=== PATIENT | male | born 1980 | race Caucasian/White ===

== ENCOUNTER → 2017-07-18 08:32 | Outpatient (POV) | payer MEDICAID, OTHER, SELFPAY | PROVIDERS: Family Provider Internal Medicine Adolescent Medicine; Visit Provider Thoracic Surgery (Cardiothoracic Vascular Surgery) | DX: Z00.00 Encounter for general adult medical examination without abnormal findings (principal) ==

== ENCOUNTER 2018-09-04 11:36 | Emergency (ER) | payer MEDICAID, SELFPAY ==
[2018-09-04 11:36] VITALS: BP 155/98; PULSE 83; RESP 20; TEMP 36.4; O2SAT 100; BMI 19.2
--- NOTE | 2018-09-04 11:38 | PC.NURSE ---
called for radiology to come to ed for 2v xray
--- NOTE | 2018-09-04 11:45 | XR_ITS ---
XR chest 2V HISTORY: ITS.REASON: epigastric and silver rib pain ORDERING PHYSICIAN: Edwardo Yanes MD PATIENT AGE: 38 years COMPARISON: 06/22/2010 FINDINGS: The cardiomediastinal silhouette and pulmonary vascularity are within normal limits. There is a prominent pectus excavatum deformity. There is blunting of the right CP angle. There is some increased density in the left CP angle with some pleural thickening. Upper lobes are clear. No acute bony findings. IMPRESSION: Prominent pectus excavatum with pleural thickening or small effusion along the right CP angle and mild pleural thickening in the lower chest laterally on the left
--- NOTE | 2018-09-04 11:54 | PC.NURSE ---
pt gone to xray
--- NOTE | 2018-09-04 11:55 | PC.NURSE ---
pt to Xray
--- NOTE | 2018-09-04 12:05 | [facility].EDGENADL ---
ED Disposition Clinical Impression: Cholelithiasis Qualifiers: Cholelithiasis location: gallbladder Cholecystitis presence: without cholecystitis Biliary obstruction: without biliary obstruction Qualified Code(s): K80.20 - Calculus of gallbladder without cholecystitis without obstruction Disposition: Home, Self-Care Condition on Discharge: Good Additional Instructions: Additional instructions for ABDOMINAL PAIN: Follow-up with general surgeon. Call for appointment. Return immediately if worsening abdominal pain, vomiting, shortness of breath, fever, vomiting of blood, yellowing of eyes or skin, or abdominal distention. Low-fat diet. Referrals: Provider,MD Yanelis [Referring] - Dane Matthews MD [Staff Physician] - - Critical Care Critical Care Time: No Attestation: On 09/04/18, the high probability of a clinically significant, sudden or life threatening deterioration of the following system(s) required my full and direct attention, intervention and personal management. The time I documented below is in addition to time spent performing reported procedures but includes the following listed in this critical care notation. Medical Decision Making - Oswaldo Inquiry Pt receiving controlled substance: No Vital Signs: 09/04/18 11:36 09/04/18 12:06 09/04/18 13:00 Temperature 97.6 F Temperature Source Oral Pulse Rate [Apical] 83 80 92 H Respiratory Rate 20 Blood Pressure [Right Arm] 155/98 H 148/94 H 140/80 Blood Pressure Mean [Right Arm] 117 112 100 Blood Pressure Source [Right Arm] Automatic Cuff Blood Pressure Position [Right Arm] Sitting 02 Sat by Pulse Oximetry 100 100 100 Oxygen Delivery Method Room Air - Lab Data Lab Results 09/04/18 11:38: WBC 7.3, RBC 5.69, Hgb 15.4, Hct 47.5, MCV 83.5, MCH 27.0, MCHC 32.3, RDW 13.4, Plt Count 278, MPV 7.2 L, Neut % (Auto) 81.7 H, Lymph % (Auto) 13.1, [place] % (Auto) 3.7, Eos % (Auto) 1.0, Baso % (Auto) 0.4, Neut # (Auto) 5.9, Lymph # (Auto) 1.0, [place] # (Auto) 0.3, Eos # (Auto) 0.1, Baso # (Auto) 0.0 09/04/18 11:38: Sodium 140, Potassium 5.0, Chloride 105, Carbon Dioxide 31, Anion Gap 9.0, BUN 16, Creatinine 0.95, Estimated Creat Clear 102, Estimated GFR 89, Est GFR ( Amer) 108, Glucose 127 H, Calcium 9.1, Troponin I < 0.02, Lipase 311 Result diagrams: 09/04/18 11:38 09/04/18 11:38 Orders (Tests/Meds): ED MEDICATIONS Generic Name Dose Route Start Last Admin Trade Name Freq PRN Reason Stop Dose Admin Ondansetron HCl 4 mg 09/04/18 14:07 Zofran 4mg/2ml Vial IV 09/04/18 14:08 ONCE ONE Discontinued Medications Generic Name Dose Route Start Last Admin Trade Name Freq PRN Reason Stop Dose Admin Ioversol 75 ml 09/04/18 12:49 09/04/18 12:50 Rad-Optiray 350 100ml Vial IV 09/04/18 12:50 75 ml ONCE ONE Administration Protocol Ketorolac Tromethamine 30 mg 09/04/18 14:03 Toradol 30mg/Ml Vial IV 09/04/18 14:04 ONCE ONE Sodium Chloride 10 ml 09/04/18 12:49 09/04/18 12:50 Rad-Saline Flush 10ml Syringe IV 09/04/18 12:50 10 ml ONCE ONE Administration ORDERS Category Date Time Status Drug Screen,Urine Stat Lab 09/04/18 13:36 Received Urinalysis and Microscopic Stat Lab 09/04/18 13:34 Received - Radiology Data #1 Image(s): Chest Image Reviewed: Yes I reviewed the patient's radiology image, Yes I have reviewed radiologist's interpretation IMPRESSION: Prominent pectus excavatum with pleural thickening or small effusion along the right CP angle and mild pleural thickening in the lower chest laterally on the left Dictated By: Jesus Aranda MD Signed By: <Electronically signed by Jesus Aranda MD in [place]> 09/04/18 1339 - CT Data CT Scan: Abdomen, Pelvis Time Received: 14:01 Findings Narrative: Head: IMPRESSION: No change with no acute intracranial findings Dictated By: Jesus Aranda MD Signed By: <Electronically signed by Jesus Aranda MD in [place]> 09/04/18
[2018-09-04 12:06] VITALS: BP 148/94; PULSE 80; O2SAT 100
[2018-09-04 12:06] LABS: Basophils % 0.4 % (0.1-2.0); Eosinophils # 0.1 K/mm3 (0.0-0.4); Hematocrit 47.5 % (42.0-52.0); Hemoglobin 15.4 g/dL (14.1-18.0); Lymphocytes % 13.1 % (10-50); Mean Corpuscular HGB Conc 32.3 g/dL (31.8-35.4); Mean Corpuscular Volume 83.5 fl (80-94); Mean Platelet Volume 7.2 fl (7.4-10.4); Monocytes # 0.3 K/mm3 (0.1-1.0); Monocytes % 3.7 % (1.7-9.3); Neutrophils # 5.9 K/mm3 (1.8-7.8); Neutrophils % 81.7 % (37.0-80.0); Platelet Count 278 K/mm3 (142-424); Red Blood Count 5.69 M/mm3 (4.60-6.20); Red Cell Distribution Width 13.4 % (11.5-17.5); White Blood Count 7.3 K/mm3 (4.8-10.8)
[2018-09-04 12:15] LABS: Blood Urea Nitrogen 16 mg/dL (7-18); Calcium 9.1 mg/dL (8.5-10.1); Carbon Dioxide 31 mmol/L (21.0-32.0); Chloride 105 mmol/L (98-107); Creatinine Clearance Estimated 102 mL/min (50-200); Creatinine,Serum 0.95 mg/dL (0.70-1.30); Estimated Glomerular Filt Rate 89 ml/min (>60); GFR (African American) 108 ML/MIN (>60); Glucose 127 mg/dL (74-106); Lipase 311 u/L (73-393); Sodium 140 mmol/L (136-145); Troponin I < 0.02 ng/ml (0.00-0.06)
--- NOTE | 2018-09-04 12:25 | CT_ITS ---
CT head/brain wo con HISTORY: Blurred vision, left-sided numbness ITS.REASON: thinks he had a stroke, L eye, L hand problems ORDERING PHYSICIAN: Edwardo Yanes MD PATIENT AGE: 38 years COMPARISON: 07/17/2008 TECHNIQUE: Axial images obtained without contrast. Brain and bone windows reviewed. All CT scans at the facility use one or more dose reduction, viz: automated exposure control, ma/kV adjustment per patient size (including targeted exams where dose is matched to indication, i.e. head), or iterative reconstruction technique. FINDINGS: No midline shift, mass effect, intracranial hemorrhage, hydrocephalus, or extra-axial fluid collection is evident. There is asymmetry in the lateral ventricles the right being larger than the left. This can be a normal variant and is not significantly changed. There is mild mucosal thickening of the maxillary sinus on the left. The calvarium has an unremarkable appearance. No mastoid effusion. No sinus air-fluid levels.. IMPRESSION: No change with no acute intracranial findings
--- NOTE | 2018-09-04 12:25 | CT_ITS ---
CT abdomen pelvis w con CLINICAL INDICATION: Abdominal pain, right upper quadrant pain ITS.REASON: abdo pain ORDERING PHYSICIAN: Edwardo Yanes MD PATIENT AGE: 38 years COMPARISON: None TECHNIQUE: Axial images obtained with sagittal and coronal reformats. All CT scans at the facility use one or more dose reduction, viz: automated exposure control, ma/kV adjustment per patient size (including targeted exams where dose is matched to indication, i.e. head), or iterative reconstruction technique. PROCEDURE: Oral Contrast: None IV Contrast: 75 mL Optiray 350. FINDINGS: There is a prominent pectus deformity. A noncalcified nodule present in the right lung base posteriorly measuring 9 mm. There are mild atelectatic or fibrotic changes in the left lung base anteriorly with mild pleural thickening laterally. Is an isodense 10 mm nodule in the right hepatic lobe laterally. The gallbladder is distended with stone or stones in the fundus of the gallbladder. There is splenomegaly at 15 cm. The adrenal glands, pancreas, and kidneys have an unremarkable appearance. No renal or ureteral calculi or hydronephrosis. The bowel gas pattern is nonspecific/nonobstructive. The appendix is not well delineated. No secondary signs of appendicitis. There is questionable thickening of the wall the rectum versus adherent feces. No intestinal obstruction or free air. No pelvic fluid collections. No acute bony findings. IMPRESSION: 1. Severe pectus deformity with nodularity in the right lung base posteriorly. Consider dedicated outpatient chest CT in 3 months. Mild pleural thickening is present in the left lung base. 2. Cholelithiasis 3. Nonspecific 10 mm isodense lesion of the right lobe of the liver. 4. Questionable thickening of the wall the rectum versus adherent feces
[2018-09-04 13:00] VITALS: BP 140/80; PULSE 92; O2SAT 100
--- NOTE | 2018-09-04 13:32 | PC.NURSE ---
pt was unable to see anything on the eye chart
[2018-09-04 13:46] LABS: Microscopic, Urine URINE MICROSCOPIC (MICROSCOPIC)
[2018-09-04 14:12] VITALS: BP 142/87; PULSE 86; O2SAT 98
[2018-09-04 14:13] LABS: Appearance,Urine CLEAR (Clear); Bilirubin,Urine Negative (Negative); Blood, Urine Negative (Negative); Color,Urine YELLOW (Yellow); Glucose,Urine (UA) Negative (Negative); Ketones,Urine Negative (Negative); Leukocyte Esterase,Urine Negative (Negative); Nitrate,Urine Negative (Negative); PH,Urine 6.5 (5.0-8.5); Protein,Urine Negative (Negative); Specific Gravity, Urine 1.015 (1.005-1.030); Urobilinogen,Urine 0.2 EU/dl (0.2)
[2018-09-04 14:15] VITALS: BP 142/87; PULSE 101; RESP 18; TEMP 36.7; O2SAT 98
[2018-09-04 14:37] LABS: Amphetamine/Metha Screen,Urine Positive ng/mL (<1000); Barbiturates Screen,Urine Negative ng/mL (<200); Benzodiazepines Screen,Urine Positive ng/mL (<200); Cannabinoid Screen,Urine Negative ng/mL (<50); Cocaine Screen,Urine Negative ng/mL (<300); Methadone Screen,Urine Negative ng/mL (<300); Opiate Screen,Urine Negative ng/mL (<300); Phencyclidine Screen,Urine Negative ng/mL (<25)
[2018-09-04 14:43] LABS: Bacteria,Urine 1+ /lpf; Mucus,Urine 2+ /lpf
== END 2018-09-04 14:22 | disposition home or self-care (01) ==
PROVIDERS: Emergency Provider Emergency Medicine; PCP Internal Medicine Adolescent Medicine
DX: K80.20 Calculus of gallbladder without cholecystitis without obstruction (principal); F17.210 Nicotine dependence, cigarettes, uncomplicated
CPT/HCPCS: 70450; 71046; 74177; 80048; 80305; 81001; 83690; 84484; 85025; 93005; 96374; 96375; 99284; J2405; Q9967

== ENCOUNTER 2018-10-12 19:01 | Observation (INO) ==
[2018-10-12 19:40] LABS: Basophils % 0.2 % (0.1-2.0); Eosinophils # 0.1 K/mm3 (0.0-0.4); Eosinophils % 0.9 % (0.1-12.0); Hematocrit 45.2 % (42.0-52.0); Hemoglobin 14.7 g/dL (14.1-18.0); Lymphocytes # 1.1 K/mm3 (0.7-4.5); Lymphocytes % 8.6 % (10-50); Mean Corpuscular HGB Conc 32.5 g/dL (31.8-35.4); Mean Corpuscular Volume 82.2 fl (80-94); Mean Platelet Volume 7.8 fl (7.4-10.4); Monocytes # 0.4 K/mm3 (0.1-1.0); Monocytes % 2.9 % (1.7-9.3); Neutrophils # 11.2 K/mm3 (1.8-7.8); Neutrophils % 87.3 % (37.0-80.0); Platelet Count 250 K/mm3 (142-424); White Blood Count 12.8 K/mm3 (4.8-10.8)
[2018-10-12 19:50] LABS: Alanine Aminotransferase 22 U/L (12-78); Albumin Level 3.4 gm/dL (3.4-5.0); Albumin/Globulin Ratio 0.9 (1.1-1.8); Alkaline Phosphatase 86 U/L (46-116); Amylase 52 U/L (25-115); Anion Gap 8.6 mEq/L (5-15); Aspartate Amino Transferase 10 U/L (15-37); Bilirubin,Total 0.4 mg/dL (0.2-1.0); Blood Urea Nitrogen 17 mg/dL (7-18); Calcium 8.8 mg/dL (8.5-10.1); Carbon Dioxide 32 mmol/L (21.0-32.0); Chloride 103 mmol/L (98-107); Globulin 3.7 gm/dl (1.3-3.2); Glucose 100 mg/dL (74-106); Sodium 139 mmol/L (136-145); Total Protein,Serum 7.1 gm/dL (6.4-8.2)
[2018-10-12 19:54] LABS: C-Reactive Protein < 0.2 mg/L (0.0-0.9)
[2018-10-12 19:58] LABS: Eosinophils % 2 % (0-3); Lymphocytes % 6 % (10-50); Monocytes % 2 % (2-9); Neutrophils % 87 % (42-76); RBC Morphology Normal; Total Cells Counted 100
[2018-10-12 20:10] LABS: Erythrocyte Sedimentation Rate 8 mm/hr (0-15)
--- NOTE | 2018-10-12 20:49 | Emergency Department Note ---
ED Disposition Clinical Impression: Pectus excavatum, Tobacco use Cholelithiasis Qualifiers: Cholelithiasis location: gallbladder Cholecystitis presence: with cholecystitis Cholecystitis acuity: acute and chronic Biliary obstruction: without biliary obstruction Qualified Code(s): K80.12 - Calculus of gallbladder with acute and chronic cholecystitis without obstruction Disposition: Admitted as Observation Condition on Discharge: Good Instructions: DI for Acute Abdomen Referrals: Pancho Hayden MD [Primary Care Provider] - - Critical Care Critical Care Time: No Attestation: On 10/12/18, the high probability of a clinically significant, sudden or life threatening deterioration of the following system(s) required my full and direct attention, intervention and personal management. The time I documented below is in addition to time spent performing reported procedures but includes the following listed in this critical care notation. Medical Decision Making - Medical Records Medical records reviewed: Yes: I reviewed the patient's medical records. - Oswaldo Inquiry Pt receiving controlled substance: No Vital Signs: 10/12/18 19:12 Temperature 98.7 F Temperature Source Oral Pulse Rate [Right] 83 Respiratory Rate 18 Blood Pressure [Right Arm] 139/85 Blood Pressure Mean [Right Arm] 103 Blood Pressure Source [Right Arm] Automatic Cuff Blood Pressure Position [Right Arm] Sitting 02 Sat by Pulse Oximetry 97 Oxygen Delivery Method Room Air - Lab Data Lab results reviewed: Yes: I reviewed the patient's lab results. Lab Results 10/12/18 19:28: WBC 12.8 H, RBC 5.50, Hgb 14.7, Hct 45.2, MCV 82.2, MCH 26.7 L, MCHC 32.5, RDW 13.0, Plt Count 250, MPV 7.8, Neut % (Auto) 87.3 H, Lymph % (Auto) 8.6 L, [place] % (Auto) 2.9, Eos % (Auto) 0.9, Baso % (Auto) 0.2, Neut # (Auto) 11.2 H, Lymph # (Auto) 1.1, [place] # (Auto) 0.4, Eos # (Auto) 0.1, Baso # (Auto) 0.0, Total Counted 100, Neutrophils % (Manual) 87 H, Band Neutrophils % 1.0, Lymphocytes % (Manual) 6 L, Atypical Lymphs % 2.0, Monocytes % (Manual) 2, Eosinophils % (Manual) 2, Platelet Estimate Normal, RBC Morphology Normal, ESR 8 10/12/18 19:28: Sodium 139, Potassium 4.6, Chloride 103, Carbon Dioxide 32, Anion Gap 8.6, BUN 17, Creatinine 0.99, Estimated Creat Clear 105, Estimated GFR 85, Est GFR ( Amer) 103, Glucose 100, Calcium 8.8, Total Bilirubin 0.4, AST 10 L, ALT 22, Alkaline Phosphatase 86, C-Reactive Protein < 0.2, Total Protein 7.1, Albumin 3.4, Globulin 3.7 H, Albumin/Globulin Ratio 0.9 L, Amylase 52, Lipase 101 10/12/18 19:28: Lactate 0.7 Result diagrams: 10/12/18 19:28 10/12/18 19:28 Orders (Tests/Meds): ED MEDICATIONS Generic Name Dose Route Start Last Admin Trade Name Freq PRN Reason Stop Dose Admin Sodium Chloride 1,000 mls @ 999 mls/hr 10/12/18 19:30 10/12/18 19:37 Sod Chlor 0.9% 1000ml Bag IV 10/12/18 20:30 999 mls/hr .Q1H1M JOJO Administration Sodium Chloride 10 ml 10/12/18 19:21 Saline Flush 10ml Syringe IV 11/11/18 19:20 NEEDED PRN Maintain IV Site Discontinued Medications Generic Name Dose Route Start Last Admin Trade Name Freq PRN Reason Stop Dose Admin Diatrizoate Meglum/Diatrizoate Sod 30 ml 10/12/18 19:19 10/12/18 19:36 Gastrografin 66%-10% 30ml PO 10/12/18 19:20 30 ml ONCE ONE Administration Famotidine 20 mg 10/12/18 19:21 10/12/18 19:37 Pepcid 20mg/2ml Vial IV 10/12/18 19:22 20 mg ONCE ONE Administration Ioversol 75 ml 10/12/18 21:22 10/12/18 21:23 Rad-Optiray 350 100ml Vial IV 10/12/18 21:23 75 ml ONCE ONE Administration Protocol Ketorolac Tromethamine 30 mg 10/12/18 19:21 10/12/18 19:37 Toradol 30mg/Ml Vial IV 10/12/18 19:22 30 mg ONCE ONE Administration Metoclopramide HCl 10 mg 10/12/18 19:21 10/12/18 19:37 Reglan 10mg/2ml Vial IVP 10/12/18 19:22 10 mg ONCE ONE Administration Ondansetron HCl 4 mg 10/12/18 19:21 10/12/18 19:37 Zofran 4mg/2ml Vial IV 10/12/18 19:22 4 mg ONCE ONE Administration Sodium Chloride 8 ml 10/12/18 19:21 10/12/18 19:37 Saline Flush 10ml Syringe IV 10/12/18 19:22 8 ml ONCE ONE Administration Sodium Chloride 10 ml 10/12/18 21:22 10/12/18 21:23 Rad-Saline Flush 10ml Syringe IV 10/12/18 21:23 10 ml ONCE ONE Administration ORDERS Category Date Time Status CT abdomen pelvis w con Stat Cat Scan 10/12/18 19:19 Taken - CT Data CT Scan: Abdomen, Pelvis Time Received: 23:[address] Reviewed: Yes: I have viewed the radiologist's interpretation Preliminary Findings: Abnormal (see report ) - Physician Consults Physician Consulted: ariel Reason -: Admission Additional Consult: eris Reason -: Pt condition Nausea/Vomiting/Diarrhea HPI - General Chief complaint: Abdominal Pain Stated complaint: gALL BLADDER ATTACK Time Seen by Provider: 10/12/18 20:00 Mode of Arrival: Ambulatory Source of Information: Patient, Spouse, Medical Record Limitations: No Limitations Description of Symptoms (Recalled from ER Triage Doc. by RN): Pt c/o abd pain states he has G.B. disease - History of Present Illness HPI Narrative: pt with known gallbladder dis and is planned on surg this week - presents with sev episode of pain tonight - nausea - MD complaint: nausea, abdominal pain Onset (ago): hour(s) Associated Abdominal Pain: Yes Location of pain: RUQ Severity: moderate Associated symptoms: denies other symptoms - Related Data Home Medications Medication Instructions Recorded Confirmed Albuterol Sulfate [Albuterol HFA 1 - 2 puffs IH Q4-6H PRN 10/12/18 10/12/18 Inhaler] Allergies Allergy/AdvReac Type Severity Reaction Status Date / Time No Known Allergies Allergy Verified 10/06/18 14:[address] [facility] History - Hepatitis A Screen Drug use history?: Yes High risk sexual behaviors?: No History of sexually transmitted infection?: No Currently employed?: No Childcare worker?: No Do you have indoor plumbing?: Yes Do you have electricity?: Yes Attestation statement:: This patient has been screened for Hepatitis A risk factors. I have reviewed the patient's past medical history: Yes Medical History: Denies:: Diabetes Mellitus Type 1, Diabetes Mellitus Type 2 Other Surgeries: Yes: Other Comment: metal sarah in chest - Social History Smoking Status: Current every day smoker Tobacco Type: cigarettes # Packs/Day (cigarettes): 1 Alcohol Intake: never Alcohol Intake Frequency:: holidays/special occasions only Occupational Status: unemployed Family Hx:: No significant family history ROS Obtained: Yes All systems reviewed & no additional complaints - Constitutional Constitutional: Denies fever(s) - Eyes Eyes: Denies change in vision - ENT Ears, Nose, Mouth, and Throat: Denies sore throat - Cardiovascular Cardiovascular: Denies chest pain - Respiratory Respiratory: No cough - Gastrointestinal Gastrointestingal: Reports: as per HPI, abdominal pain, nausea, vomiting - Genitourinary Male Genitourinary: Denies hematuria - Musculoskeletal Musculoskeletal: Denies joint pain - Integumentary/Breasts Skin/Breast: Denies rash - Neurologic Neurologic: Denies seizure-like activity Physical Exam - General General appearance: alert - Head Head exam: normocephalic - Eye Eye exam: Present: PERRL, EOMI. Absent: scleral icterus - ENT ENT exam: Present: mucous membranes dry - Neck Neck exam: Present: trachea midline - Chest Chest inspection: Present: other (pectus) - Respiratory Respiratory exam: Absent: respiratory distress - Cardiovascular Cardiovascular exam: Present: regular rate - Abdominal Exam Abdominal exam: Present: soft, tenderness, Sandoval's sign Abdominal tenderness: Present: RUQ, moderate - Extremities Exam Extremities exam: Present: full ROM - Neurological Exam Neurological exam: Present: alert, oriented X3, CN II-XII intact - Psychiatric Psychiatric exam: Present: normal affect - Skin Skin exam: Absent: rash
[2018-10-13 06:27] LABS: Albumin Level 2.9 gm/dL (3.4-5.0); Albumin/Globulin Ratio 0.9 (1.1-1.8); Anion Gap 9.9 mEq/L (5-15); Calcium 8.2 mg/dL (8.5-10.1); Globulin 3.1 gm/dl (1.3-3.2)
[2018-10-13 06:33] LABS: Eosinophils # 0.2 K/mm3 (0.0-0.4); Monocytes # 0.4 K/mm3 (0.1-1.0); Red Cell Distribution Width 13.1 % (11.5-17.5)
--- NOTE | 2018-10-13 07:12 | Pharmacy Consult Notes ---
[facility] Pharmacy VTE Monitoring - Patient Demographics Admission date: 10/12/18 Report Date: 10/13/18 Time: 07:12 Allergies/Adverse Reactions: Patient Allergies No Known Allergies Allergy (Verified 10/06/18 14:12) Height: 1.88 m Weight: 70.052 kg Patient Problems: Current Active Problems (Updated 10/12/18 @ 23:15 by Cristofer Velasquez MD) Cholelithiasis (Acute) Pectus excavatum (Acute) Tobacco use (Acute) - VTE Risk Labs: VTE Related Lab Results Hgb 14.7 g/dL (14.1-18.0) 10/12/18 19:28 Hct 45.2 % (42.0-52.0) 10/12/18 19:28 Plt Count 250 K/mm3 (142-424) 10/12/18 19:28 BUN 12 mg/dL (7-18) D 10/13/18 05:53 Creatinine 0.85 mg/dL (0.70-1.30) 10/13/18 05:53 Estimated Creat Clear 118 mL/min (50-200) 10/13/18 05:53 VTE Score: 3 VTE Risk Level: Low Risk - Prophylaxis VTE Prophylaxis Ordered?: Yes Types of VTE Prophylaxis: TEDS Knee High Location of Applied Device: Bilateral Lower Extremeties - VTE Diagnosis Confirmed Treatment or plan recommended: Continue Current Treatment
[2018-10-13 07:19] LABS: Basophils % 0.4 % (0.1-2.0); Eosinophils % 2.9 % (0.1-12.0); Hematocrit 38.3 % (42.0-52.0); Lymphocytes # 1.3 K/mm3 (0.7-4.5); Lymphocytes % 22.8 % (10-50); Mean Corpuscular HGB Conc 33.8 g/dL (31.8-35.4); Mean Corpuscular Volume 81.9 fl (80-94); Mean Platelet Volume 7.2 fl (7.4-10.4); Monocytes % 7.1 % (1.7-9.3); Neutrophils # 3.8 K/mm3 (1.8-7.8); Neutrophils % 66.8 % (37.0-80.0); Platelet Count 225 K/mm3 (142-424); Red Blood Count 4.67 M/mm3 (4.60-6.20); White Blood Count 5.8 K/mm3 (4.8-10.8)
[2018-10-13 07:39] LABS: Hemoglobin 12.9 g/dL (14.1-18.0)
--- NOTE | 2018-10-13 08:45 | Consult Report ---
*Admission Date: 10/12/18 *Reason for consult:: Cholecystitis *History of present illness: This is a 38-year-old gentleman who is currently scheduled to undergo cholecystectomy later this week. He presented overnight with increasing abdominal pain and was admitted for observation. No fevers. No jaundice. Currently he states he "feels much better than in the emergency department". Review of Systems - Constitutional Denies body ache(s) - Eyes Denies change in vision - ENT Denies change in voice - *Cardiovascular Denies chest pain - *Respiratory Denies cough - *Gastrointestinal Reports abdominal pain, Reports nausea - *Genitourinary Denies difficulty urinating - *Musculoskeletal Denies abnormal walking - Integumentary/Breasts Denies sores - *Neurologic Denies seizure-like activity - Psychiatric Denies confusion - Endocrine Denies excessive sweating - Hematologic/Lymphatic Denies easy bleeding [facility] History Medical History: Denies:: Cancer, Diabetes Mellitus Type 1, Diabetes Mellitus Type 2, MRSA *Have you ever received a pneumonia vaccine?: No *Have you received a flu vaccine this season?: No Other Surgeries: Yes: Other Amputation: No Fractures: No - *Social History Educational Level: Completed High School Smoking Status: Current every day smoker Tobacco Type: cigarettes # Packs/Day (cigarettes): 1 Alcohol Intake: never Alcohol Intake Frequency:: holidays/special occasions only Substance Use Type: opiates, painkillers Last Used Substance: unknown *Occupational Status:: unemployed Housing: house Household Members: family *Travel in the last 8 weeks: None - Psychiatric History Expresses thoughts of harming self/others: None Suicide Plan Description: No Plan Family Hx:: Cancer, Hyperlipidemia, Hypertension Meds Home Medications Medication Instructions Recorded Confirmed Type Albuterol Sulfate [Albuterol HFA 1 - 2 puffs IH Q4-6H PRN 10/12/18 10/12/18 History Inhaler] Allergies Allergy/AdvReac Type Severity Reaction Status Date / Time No Known Allergies Allergy Verified 10/06/18 14:12 Exam Vital signs and Labs for Last 24 Hours: Temp Pulse Resp BP Pulse Ox 97.8 F 77 20 93/58 L 98 10/13/18 07:58 10/13/18 07:58 10/13/18 07:58 10/13/18 07:58 10/13/18 07:58 Laboratory Results - last 24 hr 10/12/18 19:28: WBC 12.8 H, RBC 5.50, Hgb 14.7, Hct 45.2, MCV 82.2, MCH 26.7 L, MCHC 32.5, RDW 13.0, Plt Count 250, MPV 7.8, Neut % (Auto) 87.3 H, Lymph % (Auto) 8.6 L, [place] % (Auto) 2.9, Eos % (Auto) 0.9, Baso % (Auto) 0.2, Neut # (Auto) 11.2 H, Lymph # (Auto) 1.1, [place] # (Auto) 0.4, Eos # (Auto) 0.1, Baso # (Auto) 0.0, Total Counted 100, Neutrophils % (Manual) 87 H, Band Neutrophils % 1.0, Lymphocytes % (Manual) 6 L, Atypical Lymphs % 2.0, Monocytes % (Manual) 2, Eosinophils % (Manual) 2, Platelet Estimate Normal, RBC Morphology Normal, ESR 8 10/12/18 19:28: Sodium 139, Potassium 4.6, Chloride 103, Carbon Dioxide 32, Anion Gap 8.6, BUN 17, Creatinine 0.99, Estimated Creat Clear 105, Estimated GFR 85, Est GFR ( Amer) 103, Glucose 100, Calcium 8.8, Total Bilirubin 0.4, AST 10 L, ALT 22, Alkaline Phosphatase 86, C-Reactive Protein < 0.2, Total Pr otein 7.1, Albumin 3.4, Globulin 3.7 H, Albumin/Globulin Ratio 0.9 L, Amylase 52, Lipase 101 10/12/18 19:28: Lactate 0.7 10/13/18 05:53: WBC 5.8 D, RBC 4.67, Hgb 12.9 L D, Hct 38.3 L, MCV 81.9, MCH 27.7, MCHC 33.8, RDW 13.1, Plt Count 225, MPV 7.2 L, Neut % (Auto) 66.8, Lymph % (Auto) 22.8, [place] % (Auto) 7.1, Eos % (Auto) 2.9, Baso % (Auto) 0.4, Neut # (Auto) 3.8, Lymph # (Auto) 1.3, [place] # (Auto) 0.4, Eos # (Auto) 0.2, Baso # (Auto) 0.0 10/13/18 05:53: Sodium 139, Potassium 3.9, Chloride 104, Carbon Dioxide 29, Anion Gap 9.9, BUN 12 D, Creatinine 0.85, Estimated Creat Clear 118, Estimated GFR 101, Est GFR ( Amer) 123, Glucose 80, Calcium 8.2 L, Total Bilirubin 1.0, AST 74 H D, ALT 58 D, Alkaline Phosphatase 80, Total Protein 6.0 L, Albumin 2.9 L D, Globulin 3.1, Albumin/Globulin Ratio 0.9 L I & O for Last 24 hours: Intake & Output 10/10/18 10/11/18 10/12/18 10/13/18 11:59 11:59 11:59 11:59 Intake Total 1810 Balance 1810 Weight 154 lb 7 oz - Constitutional no acute distress - *Routine Respiratory Exam Absent: respiratory distress - *Routine Cardiovascular Exam Present: RRR - *Routine Abdominal Exam Present: soft, tenderness Comments: Per patient he is less tender than earlier today Results - Labs 10/13/18 05:53 10/13/18 05:53 Laboratory Results - last 24 hr 10/12/18 19:28: WBC 12.8 H, RBC 5.50, Hgb 14.7, Hct 45.2, MCV 82.2, MCH 26.7 L, MCHC 32.5, RDW 13.0, Plt Count 250, MPV 7.8, Neut % (Auto) 87.3 H, Lymph % (Auto) 8.6 L, [place] % (Auto) 2.9, Eos % (Auto) 0.9, Baso % (Auto) 0.2, Neut # (Auto) 11.2 H, Lymph # (Auto) 1.1, [place] # (Auto) 0.4, Eos # (Auto) 0.1, Baso # (Auto) 0.0, Total Counted 100, Neutrophils % (Manual) 87 H, Band Neutrophils % 1.0, Lymphocytes % (Manual) 6 L, Atypical Lymphs % 2.0, Monocytes % (Manual) 2, Eosinophils % (Manual) 2, Platelet Estimate Normal, RBC Morphology Normal, ESR 8 10/12/18 19:28: Sodium 139, Potassium 4.6, Chloride 103, Carbon Dioxide 32, Anion Gap 8.6, BUN 17, Creatinine 0.99, Estimated Creat Clear 105, Estimated GFR 85, Est GFR ( Amer) 103, Glucose 100, Calcium 8.8, Total Bilirubin 0.4, AST 10 L, ALT 22, Alkaline Phosphatase 86, C-Reactive Protein < 0.2, Total Protein 7.1, Albumin 3.4, Globulin 3.7 H, Albumin/Globulin Ratio 0.9 L, Amylase 52, Lipase 101 10/12/18 19:28: Lactate 0.7 10/13/18 05:53: WBC 5.8 D, RBC 4.67, Hgb 12.9 L D, Hct 38.3 L, MCV 81.9, MCH 27.7, MCHC 33.8, RDW 13.1, Plt Count 225, MPV 7.2 L, Neut % (Auto) 66.8, Lymph % (Auto) 22.8, [place] % (Auto) 7.1, Eos % (Auto) 2.9, Baso % (Auto) 0.4, Neut # (Auto) 3.8, Lymph # (Auto) 1.3, [place] # (Auto) 0.4, Eos # (Auto) 0.2, Baso # (Auto) 0.0 10/13/18 05:53: Sodium 139, Potassium 3.9, Chloride 104, Carbon Dioxide 29, Anion Gap 9.9, BUN 12 D, Creatinine 0.85, Estimated Creat Clear 118, Estimated GFR 101, Est GFR ( Amer) 123, Glucose 80, Calcium 8.2 L, Total Bilirubin 1.0, AST 74 H D, ALT 58 D, Alkaline Phosphatase 80, Total Protein 6.0 L, Albumin 2.9 L D, Globulin 3.1, Albumin/Globulin Ratio 0.9 L Assessment and Plan (1) Calculous cholecystitis Current visit: Yes Status: Acute Category: Medical Code(s): K80.10 - Calculus of gallbladder with chronic cholecystitis without obstruction Currently scheduled to undergo cholecystectomy later this week. He states that he "feels much better" than when evaluated in the emergency department. Okay for discharge home from a surgical standpoint with plans for cholecystectomy later this week
--- NOTE | 2018-10-13 13:44 | H&P/Discharge Summary ---
General - General Admission date:: 10/12/18 Discharge date: 10/13/18 *Admission Date: 10/12/18 *Chief complaint: Abdominal pain *History of present illness: Mr. Raymundo is a 38-year-old male with recent diagnosis of cholelithiasis. He has been having recurrent episodes of abdominal pain. Currently scheduled for cholecystectomy this Friday. He presented to the ER last night due to worsening abdominal pain and nausea, pain predominantly right upper quadrant. Difficulty achieving pain control. Had been using NSAIDs at home with minimal benefit. Stated it was the worst episode he had had yet causing him to come to the ER. Initial work-up showed normal labs with no elevation in liver enzymes or bilirubin. CT did show interval change in pericholecystic fluid. Had slight white elevation in white cell count. Admitted to medicine for further management and surgical consultation with further plans pending assessment in the morning. Patient denied fever, chest pain, shortness of breath, diarrhea; complained of some nausea, abdominal pain, referred pain to his back [facility] History I have reviewed the patient's past medical history: Yes Medical History: Denies:: Cancer, Diabetes Mellitus Type 1, Diabetes Mellitus Type 2, MRSA *Have you ever received a pneumonia vaccine?: No *Have you received a flu vaccine this season?: No Other Surgeries: Yes: Other Amputation: No Fractures: No - *Social History Educational Level: Completed High School Smoking Status: Current every day smoker Tobacco Type: cigarettes # Packs/Day (cigarettes): 1 Alcohol Intake: never Alcohol Intake Frequency:: holidays/special occasions only Substance Use Type: opiates, painkillers Last Used Substance: unknown *Occupational Status:: unemployed Housing: house Household Members: family *Travel in the last 8 weeks: None - Psychiatric History Expresses thoughts of harming self/others: None Suicide Plan Description: No Plan Family Hx:: Cancer, Hyperlipidemia, Hypertension Review of Systems - Review of Systems Review of systems:: pertinent systems reviewed and negative unless documented below - *Neurologic Denies abnormal walking, Denies confusion, Denies seizure-like activity Exam Vital signs and Labs for Last 24 Hours: Temp Pulse Resp BP Pulse Ox 97.8 F 77 20 93/58 L 98 10/13/18 07:58 10/13/18 07:58 10/13/18 07:58 10/13/18 07:58 10/13/18 09:00 Laboratory Results - last 24 hr 10/12/18 19:28: WBC 12.8 H, RBC 5.50, Hgb 14.7, Hct 45.2, MCV 82.2, MCH 26.7 L, MCHC 32.5, RDW 13.0, Plt Count 250, MPV 7.8, Neut % (Auto) 87.3 H, Lymph % (Auto) 8.6 L, [place] % (Auto) 2.9, Eos % (Auto) 0.9, Baso % (Auto) 0.2, Neut # (Auto) 11.2 H, Lymph # (Auto) 1.1, [place] # (Auto) 0.4, Eos # (Auto) 0.1, Baso # (Auto) 0.0, Total Counted 100, Neutrophils % (Manual) 87 H, Band Neutrophils % 1.0, Lymphocytes % (Manual) 6 L, Atypical Lymphs % 2.0, Monocytes % (Manual) 2, Eosinophils % (Manual) 2, Platelet Estimate Normal, RBC Morphology Normal, ESR 8 10/12/18 19:28: Sodium 139, Potassium 4.6, Chloride 103, Carbon Dioxide 32, Anion Gap 8.6, BUN 17, Creatinine 0.99, Estimated Creat Clear 105, Estimated GFR 85, Est GFR ( Amer) 103, Glucose 100, Calcium 8.8, Total Bilirubin 0.4, AST 10 L, ALT 22, Alkaline Phosphatase 86, C-Reactive Protein < 0.2, Total Pr otein 7.1, Albumin 3.4, Globulin 3.7 H, Albumin/Globulin Ratio 0.9 L, Amylase 52, Lipase 101 10/12/18 19:28: Lactate 0.7 10/13/18 05:53: WBC 5.8 D, RBC 4.67, Hgb 12.9 L D, Hct 38.3 L, MCV 81.9, MCH 27.7, MCHC 33.8, RDW 13.1, Plt Count 225, MPV 7.2 L, Neut % (Auto) 66.8, Lymph % (Auto) 22.8, [place] % (Auto) 7.1, Eos % (Auto) 2.9, Baso % (Auto) 0.4, Neut # (Auto) 3.8, Lymph # (Auto) 1.3, [place] # (Auto) 0.4, Eos # (Auto) 0.2, Baso # (Auto) 0.0 10/13/18 05:53: Sodium 139, Potassium 3.9, Chloride 104, Carbon Dioxide 29, Anion Gap 9.9, BUN 12 D, Creatinine 0.85, Estimated Creat Clear 118, Estimated GFR 101, Est GFR ( Amer) 123, Glucose 80, Calcium 8.2 L, Total Bilirubin 1.0, AST 74 H D, ALT 58 D, Alkaline Phosphatase 80, Total Protein 6.0 L, Albumin 2.9 L D, Globulin 3.1, Albumin/Globulin Ratio 0.9 L I & O for Last 24 hours: Intake & Output 10/10/18 10/11/18 10/12/18 10/13/18 23:59 23:59 23:59 23:59 Intake Total 1000 / 1000 811 / 811 Balance 1000 / 1000 811 / 811 Weight 70.052 kg - Constitutional mild distress Comments: Agitated and fidgety - *Routine HEENT Exam Head: Present: normocephalic Eye: Present: EOMI, PERRL ENT: Present: mucous membranes moist - *Routine Neck Exam Present: supple. Absent: lymphadenopathy - Routine Chest/Breast/Axilla Exam Comments: Pronounced pectus excavatum - *Routine Respiratory Exam Present: CTA bilaterally - *Routine Cardiovascular Exam Present: RRR. Absent: murmur - *Routine Abdominal Exam Present: soft, normoactive bowel sounds, tenderness (Right upper quadrant) - *Routine Extremities Exam Absent: cyanosis, clubbing, edema - *Routine Skin Exam Present: warm. Absent: rash - *Routine Neurological Exam Present: alert, oriented X3 Hospital Course Hospital Course: Admitted for abdominal pain and reevaluation by surgery. Surgery saw patient this morning, plan to stick with prearranged surgery time on Friday as patient's liver enzymes are normal. Will treat with Augmentin as an outpatient to cover for cholecystitis. Pain well controlled while admitted. Will discharge with a few doses of opiate to cover any acute exacerbations between now and Friday. Patient hemodynamically stable, tolerating regular diet. Counseled on avoiding high fat foods. Follow-up in 2 weeks with primary care after patient has had surgery Results Labs on day of discharge: Labs from last 24 hours 10/13/18 10/13/18 10/12/18 05:53 05:53 19:28 WBC 5.8 D RBC 4.67 Hgb 12.9 L D Hct 38.3 L MCV 81.9 MCH 27.7 MCHC 33.8 RDW 13.1 Plt Count 225 MPV 7.2 L Neut % (Auto) 66.8 Lymph % (Auto) 22.8 [place] % (Auto) 7.1 Eos % (Auto) 2.9 Baso % (Auto) 0.4 Neut # (Auto) 3.8 Lymph # (Auto) 1.3 [place] # (Auto) 0.4 Eos # (Auto) 0.2 Baso # (Auto) 0.0 Total Counted Neutrophils % (Manual) Band Neutrophils % Lymphocytes % (Manual) Atypical Lymphs % Monocytes % (Manual) Eosinophils % (Manual) Platelet Estimate RBC Morphology ESR Sodium 139 Potassium 3.9 Chloride 104 Carbon Dioxide 29 Anion Gap 9.9 BUN 12 D Creatinine 0.85 Estimated Creat Clear 118 Estimated GFR 101 Est GFR ( Amer) 123 Glucose 80 Lactate 0.7 Calcium 8.2 L Total Bilirubin 1.0 AST 74 H D ALT 58 D Alkaline Phosphatase 80 C-Reactive Protein Total Protein 6.0 L Albumin 2.9 L D Globulin 3.1 Albumin/Globulin Ratio 0.9 L Amylase Lipase 10/12/18 10/12/18 19:28 19:28 WBC 12.8 H RBC 5.50 Hgb 14.7 Hct 45.2 MCV 82.2 MCH 26.7 L MCHC 32.5 RDW 13.0 Plt Count 250 MPV 7.8 Neut % (Auto) 87.3 H Lymph % (Auto) 8.6 L [place] % (Auto) 2.9 Eos % (Auto) 0.9 Baso % (Auto) 0.2 Neut # (Auto) 11.2 H Lymph # (Auto) 1.1 [place] # (Auto) 0.4 Eos # (Auto) 0.1 Baso # (Auto) 0.0 Total Counted 100 Neutrophils % (Manual) 87 H Band Neutrophils % 1.0 Lymphocytes % (Manual) 6 L Atypical Lymphs % 2.0 Monocytes % (Manual) 2 Eosinophils % (Manual) 2 Platelet Estimate Normal RBC Morphology Normal ESR 8 Sodium 139 Potassium 4.6 Chloride 103 Carbon Dioxide 32 Anion Gap 8.6 BUN 17 Creatinine 0.99 Estimated Creat Clear 105 Estimated GFR 85 Est GFR ( Amer) 103 Glucose 100 Lactate Calcium 8.8 Total Bilirubin 0.4 AST 10 L ALT 22 Alkaline Phosphatase 86 C-Reactive Protein < 0.2 Total Protein 7.1 Albumin 3.4 Globulin 3.7 H Albumin/Globulin Ratio 0.9 L Amylase 52 Lipase 101 DS: Diagnosis - Discharge Diagnosis (1) Calculous cholecystitis Status: Acute Problem details: Scheduled for surgery Friday. Seen by surgery, will initiate Augmentin to cover for mild cholecystitis given slight elevation in white count. No plan for emergent surgery. Treat pain with opiates, discharged with a few doses. (2) Pectus excavatum Status: Chronic (3) Tobacco use Status: Chronic Discharge Plan - Patient Discharge Instructions ACTIVITY: Continue current activity DIET: low fat, low cholesterol Patient Instructions: DI for Gallstones, DI for Pectus Excavatum, DI for Cholecystitis - Follow up Plan Follow up with: Gurinder Boo MD [Staff Physician] - 2 weeks Disposition: Home, Self-Nursing Home Medications: Home Medications Medication Instructions Recorded Confirmed Type Albuterol Sulfate [Albuterol HFA 1 - 2 puffs IH Q4-6H PRN 10/12/18 10/12/18 History Inhaler] Amoxicillin/Potassium Clav 1 tab PO TID 5 Days #15 tab 10/13/18 Rx [Augmentin 500mg tab] Prescriptions/Medication Reconciliation: New Amoxicillin/Potassium Clav [Augmentin 500mg tab] 1 tab PO TID 5 Days #15 tab Continued Albuterol Sulfate [Albuterol HFA Inhaler] 1 - 2 puffs IH Q4-6H PRN PRN Reason: Shortness Of Breath Or Wheezing
== END 2018-10-13 14:04 | disposition home or self-care (01) ==
LOC: ER 19:01 → 2ND 19:01
PROVIDERS: ADMIT Internal Medicine Adolescent Medicine; ATTEND Internal Medicine Adolescent Medicine
DX: K80.12 Calculus of gallbladder with acute and chronic cholecystitis without obstruction; Z72.0 Tobacco use; Q67.6 Pectus excavatum
CPT/HCPCS: 74177; 80053; 82150; 83605; 83690; 85007; 85025; 85651; 86140; 96365; 96375; 99284; G0378; J2405; Q9967

== ENCOUNTER 2020-05-02 12:00 | Observation (INO) | payer MEDICAID, SELFPAY ==
[2020-05-02] VITALS (15 sets, daily range): BP systolic 104–157; BP diastolic 66–104; PULSE 80–104; RESP 16–20; TEMP 36.5–36.8; O2SAT 97–100; BMI 22.4; BMI 22.5
--- NOTE | 2020-05-02 12:02 | ECG_ITS ---
APPROVED REPORT Exam: Resting ECG HR:99 bpm ECG Measurements Heart Rate 99 AXES GA 148 P 27 QRSd 88 QRS -53 QT 354 T 56 QTc 454 Conclusion Sinus rhythm RSR' or QR pattern in V1 suggests right ventricular conduction delay Left anterior fascicular block with LAD Abnormal ECG Electronically signed by : Pancho Hayden, 05/02/2020 22:04:08
--- NOTE | 2020-05-02 12:02 | HMH.EDCP ---
ED Disposition Clinical Impression: Mental and behavioral disorders d/t use of alcohol, acute intoxication Disposition: Admitted as Observation Condition on Discharge: Good Referrals: PCP,No [Primary Care Provider] - - Critical Care Critical Care Time: No Attestation: On , the high probability of a clinically significant, sudden or life threatening deterioration of the following system(s) required my full and direct attention, intervention and personal management. The time I documented below is in addition to time spent performing reported procedures but includes the following listed in this critical care notation. Medical Decision Making - Medical Records Medical records reviewed: Yes: I reviewed the patient's medical records. - Oswaldo Inquiry Pt receiving controlled substance: No Vital Signs: 05/02/20 12:00 05/02/20 13:36 05/02/20 14:09 Temperature 97.8 F Temperature Source Oral Pulse Rate [Right] 98 H 94 H 101 H Respiratory Rate 17 16 Blood Pressure [Right Arm] 147/104 H 104/83 L 137/80 Blood Pressure Mean [Right Arm] 118 90 99 Blood Pressure Source [Right Arm] Automatic Cuff Blood Pressure Position [Right Arm] Sitting 02 Sat by Pulse Oximetry 100 100 98 Oxygen Delivery Method Room Air Room Air 05/02/20 14:37 05/02/20 15:16 05/02/20 15:32 Temperature Temperature Source Pulse Rate [Right] 99 H 95 H 94 H Respiratory Rate 20 18 18 Blood Pressure [Right Arm] 135/79 118/66 117/82 Blood Pressure Mean [Right Arm] 97 83 93 Blood Pressure Source [Right Arm] Blood Pressure Position [Right Arm] 02 Sat by Pulse Oximetry 98 98 98 Oxygen Delivery Method 05/02/20 15:56 Temperature Temperature Source Pulse Rate [Right] 86 Respiratory Rate 20 Blood Pressure [Right Arm] 132/81 Blood Pressure Mean [Right Arm] 98 Blood Pressure Source [Right Arm] Blood Pressure Position [Right Arm] 02 Sat by Pulse Oximetry 97 Oxygen Delivery Method - Lab Data Lab results reviewed: Yes: I reviewed the patient's lab results. Lab Results 05/02/20 11:50: WBC 5.5, RBC 5.38, Hgb 15.3, Hct 45.5, MCV 84.6, MCH 28.4, MCHC 33.6, RDW 13.8, Plt Count 261, MPV 7.5, Neut % (Auto) 57.3, Lymph % (Auto) 31.9, [place] % (Auto) 9.2, Eos % (Auto) 1.1, Baso % (Auto) 0.5, Neut # (Auto) 3.2, Lymph # (Auto) 1.8, [place] # (Auto) 0.5, Eos # (Auto) 0.1, Baso # (Auto) 0.0 05/02/20 11:50: Sodium 142, Potassium 4.0, Chloride 105, Carbon Dioxide 30, Anion Gap 11.0, BUN 21 H, Creatinine 1.10, Estimated Creat Clear 101, Estimated GFR 75, Est GFR ( Amer) 90, Glucose 97, Calcium 9.4, Troponin I < 0.01 05/02/20 14:55: Urine Opiates Screen Negative, Urine Methadone Screen Negative, Ur Barbituates Screen Negative, Ur Phencyclidine Scrn Negative, Ur Amphetamines Screen , U Benzodiazepines Scrn Negative, Urine Cocaine Screen Negative, U Marijuana (THC) Screen Negative 05/02/20 14:55: Urine Color Yellow, Urine Appearance Sl cloudy, Urine pH 6.0, Ur Specific [place] >= 1.030, Urine Protein 2+, Urine Glucose (UA) Negative, Urine Ketones Trace, Urine Blood Negative, Urine Nitrate Negative, Urine Bilirubin Negative, Urine Urobilinogen 1.0, Ur Leukocyte Esterase Negative, Urine WBC 5-10, Urine Bacteria 2+, Urine Mucus 3+, Urine Sperm 2+ Result diagrams: 05/02/20 11:50 05/02/20 11:50 Orders (Tests/Meds): ORDERS Category Date Time Status Full Resp Panel w/COVID ([facility]) Routine Lab 05/02/20 15:55 Ordered Troponin I Q3H Lab 05/02/20 15:10 Received Troponin I Q3H Lab 05/02/20 18:15 Ordered Troponin I Q3H Lab 05/02/20 21:15 Ordered Urine Culture Stat Micro 05/02/20 14:55 Received Medical Decision Narrative: 40yo M dilated for possible chest pain. Differential diagnosis includes but not limited to: ACS/[place], PE, pneumonia, pneumothorax, GERD, sequela of IV drug abuse to include endocarditis, malingering to avoid law enforcement. Patient is in no acute distress on initial evaluation. He has rested comfortably during his observa
[2020-05-02 12:17] LABS: Chloride 105 mmol/L (98-107)
[2020-05-02 12:18] LABS: Sodium 142 mmol/L (136-145)
[2020-05-02 12:20] LABS: Blood Urea Nitrogen 21 mg/dl (9-20); Creatinine Clearance Estimated 101 mL/min (50-200); Estimated Glomerular Filt Rate 75 ml/min (>60); GFR (African American) 90 ML/MIN (>60)
[2020-05-02 12:21] LABS: Calcium 9.4 mg/dl (8.4-10.2); Carbon Dioxide 30 mmol/L (22.0-30.0); Glucose 97 mg/dl (74-100)
[2020-05-02 12:25] LABS: Basophils % 0.5 % (0.1-2.0); Eosinophils # 0.1 K/mm3 (0.0-0.4); Eosinophils % 1.1 % (0.1-12.0); Hematocrit 45.5 % (42.0-52.0); Hemoglobin 15.3 g/dL (14.1-18.0); Lymphocytes # 1.8 K/mm3 (0.7-4.5); Lymphocytes % 31.9 % (10-50); Mean Corpuscular HGB Conc 33.6 g/dL (31.8-35.4); Mean Corpuscular Hemoglobin 28.4 pg (27.0-31.2); Mean Corpuscular Volume 84.6 fl (80-94); Mean Platelet Volume 7.5 fl (7.4-10.4); Monocytes # 0.5 K/mm3 (0.1-1.0); Monocytes % 9.2 % (1.7-9.3); Neutrophils # 3.2 K/mm3 (1.8-7.8); Neutrophils % 57.3 % (37.0-80.0); Platelet Count 261 K/mm3 (142-424); Red Blood Count 5.38 M/mm3 (4.60-6.20); Red Cell Distribution Width 13.8 % (11.5-17.5); White Blood Count 5.5 K/mm3 (4.8-10.8)
[2020-05-02 12:38] LABS: Troponin I < 0.01 ng/ml (0.00-0.034)
--- NOTE | 2020-05-02 15:02 | PC.NURSE ---
pt reported to ER that he was suicidal. Staff is now sitting one on one with pt for observation
[2020-05-02 15:04] LABS: Microscopic, Urine URINE MICROSCOPIC (MICROSCOPIC)
[2020-05-02 15:06] LABS: Appearance,Urine SL CLOUDY (Clear); Blood, Urine Negative (Negative); Color,Urine YELLOW (Yellow); Glucose,Urine (UA) Negative (Negative); Ketones,Urine TRACE (Negative); Leukocyte Esterase,Urine Negative (Negative); Nitrate,Urine Negative (Negative); Protein,Urine 2+ (Negative); Specific Gravity, Urine >= 1.030 (1.005-1.030)
[2020-05-02 15:12] LABS: Bilirubin,Urine Negative (Negative)
[2020-05-02 15:20] LABS: Barbiturates Screen,Urine Negative ng/ml (<200); Benzodiazepines Screen,Urine Negative ng/ml (<200)
[2020-05-02 15:22] LABS: Cannabinoid Screen,Urine Negative ng/ml (<50); Methadone Screen,Urine Negative ng/ml (<300)
[2020-05-02 15:23] LABS: Cocaine Screen,Urine Negative ng/ml (<300)
[2020-05-02 15:24] LABS: Bacteria,Urine 2+ /lpf; Mucus,Urine 3+ /lpf; Opiate Screen,Urine Negative ng/ml (<300); Phencyclidine Screen,Urine Negative ng/ml (<25); Sperm,Urine 2+ /lpf
--- NOTE | 2020-05-02 15:50 | PC.NURSE ---
speaking with Dr. Beasley
--- NOTE | 2020-05-02 15:56 | PC.NURSE ---
Notified house of admission. covid swab collected at this time
[2020-05-02 16:02] LABS: Adenovirus,PCR Not Detected (NotDetected); Bordetella Pertussis Not Detected (NotDetected); Chlamydophila Pneumoniae, PCR Not Detected (NotDetected); Coronavirus 19, PCR Not Detected (NotDetected); Coronavirus 229E Not Detected (NotDetected); Coronavirus NL63 Not Detected (NotDetected); Coronavirus OC43 Not Detected (NotDetected); Coronovirus HKU1,PCR Not Detected (NotDetected); Human Metapneumovirus Not Detected (NotDetected); Influenza A, PCR Not Detected (NotDetected); Influenza AH1, 2009 Not Detected (NotDetected); Influenza AH1, PCR Not Detected (NotDetected); Influenza AH3,PCR Not Detected (NotDetected); Influenza B, PCR Not Detected (NotDetected); Mycoplasma Pneumoniae, PCR Not Detected (NotDetected); Parainfluenza 1, PCR Not Detected (NotDetected); Parainfluenza 2, PCR Not Detected (NotDetected); Parainfluenza 3, PCR Not Detected (NotDetected); Parainfluenza 4, PCR Not Detected (NotDetected); Respiratory Syncytial Virus Not Detected (NotDetected); Rhinovirus/Enterovirus Not Detected (NotDetected)
[2020-05-02 16:33] LABS: Troponin I < 0.01 ng/ml (0.00-0.034)
--- NOTE | 2020-05-02 17:22 | PC.NURSE ---
Notified floor pt ready for admission
--- NOTE | 2020-05-02 17:36 | PC.NURSE ---
pT ARRIVED TO THE FLOOR AT THIS TIME
--- NOTE | 2020-05-02 18:55 | PC.NURSE ---
PATIENT REQUESTED SOMETHING FOR RESTLESSNESS AND AGITATION. MOVING AROUND IN BED, UNABLE TO SIT STILL. PATIENT COOPERATIVE WITH CARE.
--- NOTE | 2020-05-02 18:55 | PC.NURSE ---
LAB AT BEDSIDE DRAWING BLOOD.
--- NOTE | 2020-05-02 19:00 | PC.NURSE ---
CAMPBELL BALLESTEROS ASSISTED PATIENT WITH BATH ON ARRIVAL TO UNIT.
--- NOTE | 2020-05-02 19:00 | PC.NURSE ---
PATIENT REPORTS EYES ARE DRY. SALINE USED TO FLUSH EYES. PATIENT REPORTS THEY FEEL BETTER.
--- NOTE | 2020-05-02 19:01 | PC.NURSE ---
PATIENT REPORTS MEDICINE HAS HELPED RESTLESSNESS. PATIENT SITTING UP IN BED.
[2020-05-02 19:28] LABS: Troponin I < 0.01 ng/ml (0.00-0.034)
--- NOTE | 2020-05-02 21:03 | PC.NURSE ---
PATIENT IS ALERT AND ORIENTED, LUNGS ARE CLEAR, PULSES EQUAL. PATIENT ARRIVED ON FLOOR VIA WHEELCHAIR, PATIENT WAS DIRTY. THIS RN INQUIRED TO WHERE PATIENT LIVES, PATIENT STATED HERE AND THERE WITH PEOPLE. THIS RN INQUIRED TO WHY PATIENT HAD SO MUCH DIRT ON HIM? PATIENT STATED, DIRT IS GOOD, EVERYBODY HAS DIRT. THIS RN BATHED PATIENT AND INSTRUCTED PATIENT TO ASSIST. PATIENT CONTINUED TO LAUGH WHILE WASHING HIS GENITAL AREA. DURING THIS [employer] RENTAL CLERK PATIENT CONTINUED TO STATE THAT HE WANTS TO KILL HIMSELF. PATIENT STATED THAT HE DOES ALL DRUGS AND WILL DO WHATEVER IT TAKES TO GET IT. [address] BECAME ONE ON ONE.
--- NOTE | 2020-05-02 21:15 | PC.NURSE ---
THIS RN UNABLE TO COMPLETE MED REC DUE TO PATIENT NOT KNOWING WHAT HIS HEALTH HISTORY IS OR IF HE TAKES MEDICATIONS. PHARMACY NO LONGER ON THE FLOOR AT THIS TIME.
[2020-05-02 22:00] LABS: Troponin I < 0.01 ng/ml (0.00-0.034)
[2020-05-03] VITALS (7 sets, daily range): BP systolic 103–128; BP diastolic 67–77; PULSE 73–97; RESP 16–19; TEMP 36.4–36.9; O2SAT 96–98; BMI 22.6
--- NOTE | 2020-05-03 05:19 | PC.NURSE ---
shift summary pts lung sounds are clear. At the beginning of the shift pt as very irritable and somewhat combative. pt is able to go to the bathroom with a standby assist. pt slept for most of the night and briefly woke up early this morning, pt was much more cooperative as well as less irritable. pt is alert and oriented X4. pt also states that he does not want to hurt himself or anyone else
[2020-05-03 07:17] LABS: Chloride 105 mmol/L (98-107); Potassium 3.6 mmoL/L (3.5-5.1); Sodium 139 mmol/L (136-145)
[2020-05-03 07:20] LABS: Anion Gap 7.6 mEq/L (5-15); Blood Urea Nitrogen 12 mg/dl (9-20); Calcium 9.3 mg/dl (8.4-10.2); Carbon Dioxide 30 mmol/L (22.0-30.0); Creatinine Clearance Estimated 140 mL/min (50-200); Estimated Glomerular Filt Rate 108 ml/min (>60); GFR (African American) 130 ML/MIN (>60); Glucose 131 mg/dl (74-100)
--- NOTE | 2020-05-03 07:51 | P.CONPHA_ITS ---
[facility] Pharmacy VTE Monitoring - Patient Demographics Admission date: 05/02/20 Report Date: 05/03/20 Time: 07:51 Allergies/Adverse Reactions: Patient Allergies No Known Allergies Allergy (Verified 10/06/18 14:12) Height: 1.88 m Weight: 80 kg Patient Problems: Current Active Problems Mental and behavioral disorders d/t use of alcohol, acute intoxication (Acute) - VTE Risk Labs: VTE Related Lab Results Hgb 15.3 g/dL (14.1-18.0) 05/02/20 11:50 Hct 45.5 % (42.0-52.0) 05/02/20 11:50 Plt Count 261 K/mm3 (142-424) 05/02/20 11:50 BUN 12 mg/dl (9-20) D 05/03/20 06:45 Creatinine 0.80 mg/dl (0.66-1.25) D 05/03/20 06:45 Estimated Creat Clear 140 mL/min (50-200) 05/03/20 06:45 Clinical Trial Participant: No - Prophylaxis VTE Prophylaxis Ordered?: Yes Types of VTE Prophylaxis: IPCS Knee High, Pharmacological Pharmacologic Type: Enoxaparin
--- NOTE | 2020-05-03 10:18 | HMH.HP ---
*Admission Date: 05/02/20 <Ninfa Miramontes - 05/03/20 10:45> *Chief complaint: chest pain; sucidal thoughts <Ninfa Miramontes - 05/03/20 10:45> *History of present illness: Mr. Raymundo is a 40-year-old male patient with no family physician who presented to [facility] emergency room via EMS after being picked up off the street in [facility] by the police. Some of the history is obtained from him, records, and hospital staff who are familiar with him in the [facility]. Patient apparently has a history of schizophrenia and has been a patient at [facility]. He has a history of pectus deformity with a failed surgery in childhood. He also has a history of cholelithiasis for which he has been seen in the emergency room and admitted to [facility]. He had a cholecystectomy scheduled which he did not show up for. He denies usage of drugs and alcohol although he is a well-known user. He then later admits to using everything that he can get his hands on. He has been in drug/ alcohol rehab programs before. In the emergency room he was complaining of chest pain and wanted pain medicine. He also admitted he wanted to kill himself. He was thus admitted for observation and has been a one-on-one since admission. This a.m. patient initially states he takes no pills, no drugs and does not drink alcohol. He then admits to Dr. Quiroz that he takes whenever he can get his hands on. He states he does not have chest pain at present and is breathing okay.He also states that he does not want to kill himself. On admission CBC is normal. Blood chemistries show normal electrolytes with a BUN of 21 and a creatinine of 1.1. Troponin I has been normal x4. Urine does show 2+ bacteria and culture is pending. Toxicology studies show positive for amphetamines. EKG revealed sinus rhythm with RSR or QR pattern in V1 suggesting right ventricular conduction delay, left anterior fascicular block with LAD. Patient has been eating well since here and requested a second breakfast tray. He continues to deny chest pain, shortness of breath, and abdominal pain. He does request pain medicine for pain in his back. He states he has joint pains and then names all of his joints. <Ninfa Miramontes 05/03/20 10:45> [facility] History Medical History: Reports:: Chronic Obstructive Pulmonary Disease (COPD), Gall Bladder Disease Denies:: Cancer, Diabetes Mellitus Type 1, Diabetes Mellitus Type 2, Internal Pacemaker, MRSA <Ninfa Miramontes 05/03/20 10:45> *Have you ever received a pneumonia vaccine?: No <Miramontes,Ninfa 05/03/20 10:45> *Have you received a flu vaccine this season?: No <FeNinfa 05/03/20 10:45> Other Surgeries: Yes: Other. No: Pacemaker <FeNinfa 05/03/20 10:45> Amputation: No <FeNinfa 05/03/20 10:45> Fractures: No <FeNinfa 05/03/20 10:45> Comment: Previous records record and metal sarah in his chest. He has noted chest surgery as a child which failed. <FeNinfa 05/03/20 10:45> - *Social History Last grade of school completed: High school graduate <Park Miramonteshy 05/03/20 10:45> Smoking Status: Current every day smoker <FeNinfa 05/03/20 10:45> Tobacco Type: cigarettes <FeNinfa 05/03/20 10:45> # Packs/Day (cigarettes): 1 <FeNinfa 05/03/20 10:45> Alcohol Intake: current <Ninfa Miramontes 05/03/20 10:45> Alcohol Intake Frequency:: holidays/special occasions only <Ninfa Miramontes 05/03/20 10:45> Substance Use Type: methamphetamine <FeNinfa 05/03/20 10:45> Last Used Substance: just KAI WHAKARURUHAU <Ninfa Miramontes 05/03/20 10:45> *Occupational Status:: unemployed <Ninfa Miramontes 05/03/20 10:45> Housing: house <Ninfa Miramontes 05/03/20 10:45> Household Members: family <Ninfa Miramontes 05/03/20 10:45> *Travel in the last 8 weeks: None <Ninfa Miramontes 05/03/20 10:45> - Psychiatric History Expresses thoughts of harming self/others: None <Ninfa Miramontes - 05/03/20 10:45
--- NOTE | 2020-05-03 13:37 | SW/DCPLANNER ---
Addendum entered by Lindsey [place] 05/04/20 13:13: I will provide this patient with additional information and contact patients mother regarding plan. Patient will discharge today. Addendum entered by Lindsey [place] 05/04/20 12:11: At this time all acute facilities that have reviewed patient information are recommending rehabilitation placement once medically stable for discharge from [facility]. I had an in depth conversation regarding rehabilitation at time of discharge: patient continuously refused rehab. I explained to patient at this time his option would be rehab placement or home. Patient stated that he would rather discharge home: several attempts were made by me to continue with rehab referral and were again refused by patient. I have notified MD of situation. Addendum entered by Lindsey [place] 05/04/20 11:13: [employer] [facility] in [place] is currently reviewing patient information. Addendum entered by Lindsey [place] 05/04/20 11:11: [facility] and [facility] in [place] have denied this patient due to no acute reason for admission (not actively suicidal). Both facilities have recommended outpatient and not inpatient services. Addendum entered by Lindsey [place] 05/03/20 14:37: I was present with Francisca Ledesma during Behavioral Health Evaluation. This patient was more alert than morning rounds: patient stated that he was interested in alf housing but Prashanth Ledesma explained a Detox Facility would better serve patient at time of discharge. Patient is agreeable to [facility] at this time. Patient information has been faxed to Mariah with Admissions at [facility]. I will follow up with Mariah once patient information is reviewed. Original Note: I will follow up with this patient once consulted by Francisca Ledesma regarding discharge plans for this patient.
--- NOTE | 2020-05-03 15:22 | HMH.BHCONS ---
*Admission Date: 05/02/20 *Reason for consult:: possible suicidal ideations *History of present illness: I interviewed patient at bedside. He cannot tell me the reason he is here in the hospital. He states that he thinks an officer called EMS and they brought him here. He then tells me that a friend brought him here. He states that I need to go and look in his stuff. He states that he is not repeating everything. We are a hospital and we should communicate with each other. He states that he knows he can't please everyone and he doesn't like himself. he states that this is why he is here and why he said those things in the ER. He states that he uses drugs to mellow himself out. -he likes drugs that slow down his way of thinking -he likes Xanax; valium; anything he can get really -at first he denies using any drugs -then he states that he may have taken something yesterday morning but he doesn't recall what this was -I went back up to his room in the afternoon; he states that he used meth yesterday morning ORIENTATION QUESTIONS: -States that it is -April -2020 -not sure the day in April -he states that he does live at home with his parents and kids He does have a history of hallucinations. -he has been to [facility] -has been diagnosed with schizophrenia in the past -he states that he thinks the hallucinations are always drug induced -he will hear people talking to him but can't make out what they are saying -thinks that people are out to get him He is willing to go to a rehab center. Initially he stated that he wanted to [facility] [place]. I did talk to him about the need to be clean and sober for so many days before this is possible. That he will have to at least go through the detox process before he can be moved to a [facility] [place]. -he did agree to go to [facility] if they are willing to accept him -for detox of drugs and possible rehab -case management was in the room during this conversation and states that she would get working on this for him RECOMMENDATIONS: 1. Start or Continue CIWA checks to monitor for withdrawal. 2. No changes to medications. 3. [facility]; [facility]. -where ever a bed is available TIME IN; 1140 TIME OUT: [address] [facility] History Medical History: Reports:: Chronic Obstructive Pulmonary Disease (COPD), Gall Bladder Disease Denies:: Cancer, Diabetes Mellitus Type 1, Diabetes Mellitus Type 2, Internal Pacemaker, MRSA *Have you ever received a pneumonia vaccine?: No *Have you received a flu vaccine this season?: No Other Surgeries: Yes: Other. 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 *Occupational Status:: unemployed Housing: house Household Members: family *Travel in the last 8 weeks: None - Psychiatric History Expresses thoughts of harming self/others: None Suicide Plan Description: Clear Pschychiatric History:: Reports:: Schizophrenia (This was a previous diagnosis for which he has been on meds the past ) Denies:: Suicide Attempt Family Hx:: Substance abuse, Alcoholism, no Diabetes Review of Systems - *Neurologic Denies abnormal walking Meds Home Medications Medication Instructions Recorded Confirmed Type No Known Home Medications 05/03/20 05/03/20 History Allergies Allergy/AdvReac Type Severity Reaction Status Date / Time No Known Allergies Allergy Verified 10/06/18 14:12 Assessment and Plan (1) Chest pain Status: Acute Category: Medical Code(s): R07.9 - Chest pain, unspecified (2) Suicidal thoughts Status: Acute Category: Medical Code(s): R45.851 - Suicidal ideations (3) M
--- NOTE | 2020-05-03 18:02 | PC.NURSE ---
Remains on room air. Independent w/ ADL's. No needs voiced. No suicidal ideations voiced to staff. Remains safe. Call olivares w/in reach. VSS
[2020-05-04] VITALS: BP 130/69; PULSE 106; PULSE 80; RESP 20; TEMP 36.6; O2SAT 97
[2020-05-04 04:00] VITALS: BP 124/69; PULSE 70; PULSE 76; RESP 19; TEMP 36.6; O2SAT 98
[2020-05-04 05:17] VITALS: BMI 23.6
--- NOTE | 2020-05-04 05:41 | PC.NURSE ---
shift summary pts lung sounds are clear wits sats maintained 90% or above and a rate ranging from 16-20. pt is much more cooperative but still easily agitated, and doesnt always like to stay in his room. pt is alert and oriented X4. denies any nausea, vomiting, or diarrhea.
[2020-05-04 08:00] VITALS: BP 133/74; PULSE 80; PULSE 90; RESP 18; TEMP 36.9; O2SAT 98
--- NOTE | 2020-05-04 08:58 | HMH.ACPN2 ---
<Tracy Nj - Last Filed: 05/04/20 08:58> Internal Medicine - PN: Subj *Date: 05/04/20 *Time: 08:58 Interval history: Patient states he feels okay this morning. He does complain of some neck and back pain which he states is chronic. He states he slept throughout the night and ate all of his breakfast this morning. He is requesting more breakfast as he is still hungry. Exam Vital signs and Labs for Last 24 Hours: Temp Pulse Resp BP Pulse Ox 97.8 F 76 19 124/69 98 05/04/20 04:00 05/04/20 04:00 05/04/20 04:00 05/04/20 04:00 05/04/20 04:00 I & O for Last 24 hours: Intake & Output 05/01/20 05/02/20 05/03/20 05/04/20 11:59 11:59 11:59 11:59 Intake Total 620 / 620 1000 / 1000 Balance 620 / 620 1000 / 1000 Weight 176 lb 5.917 oz 184 lb 4.903 oz Microbiology Reports for the Last 24 Hours: Microbiology 05/02/20 14:55 Urine,Clean Catch Urine Culture - Preliminary NO GROWTH AFTER 24 HOURS - Constitutional no acute distress - *Routine Respiratory Exam Present: CTA bilaterally - *Routine Cardiovascular Exam Present: RRR - *Routine Abdominal Exam Present: soft, normoactive bowel sounds. Absent: tenderness - *Routine Extremities Exam Absent: cyanosis, clubbing, edema - *Routine Skin Exam Present: warm. 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, acute intoxication Status: Acute Category: Medical Code(s): F10.929 - Alcohol use, unspecified with intoxication, unspecified; F10.988 - Alcohol use, unspecified with other alcohol-induced disorder (4) Cholelithiasis Status: Acute Qualifiers: Cholelithiasis location: gallbladder Cholecystitis presence: without cholecystitis Biliary obstruction: without biliary obstruction Qualified Code(s): K80.20 - Calculus of gallbladder without cholecystitis without obstruction Category: Medical Code(s): K80.20 - Calculus of gallbladder without cholecystitis without obstruction (5) Methamphetamine abuse Status: Acute Category: Medical Code(s): F15.10 - Other stimulant abuse, uncomplicated (6) Pectus excavatum Status: Chronic Category: Medical Code(s): Q67.6 - Pectus excavatum (7) Tobacco use Status: Chronic Category: Social Hx Code(s): Z72.0 - Tobacco use - Assessment and plan all Dx Assessment and Plan for all problems:: Care management is working on placement at [facility] for rehab. <Sonny Quiroz - Last Filed: 05/04/20 12:46> Internal Medicine - PN: Subj *Date: 05/04/20 *Time: 12:44 Exam Vital signs and Labs for Last 24 Hours: Temp Pulse Resp BP Pulse Ox 98.4 F 90 18 133/74 98 05/04/20 08:00 05/04/20 08:00 05/04/20 08:00 05/04/20 08:00 05/04/20 08:00 I & O for Last 24 hours: Intake & Output 05/02/20 05/03/20 05/04/20 05/05/20 11:59 11:59 11:59 11:59 Intake Total 620 / 620 1240 / 1240 Output Total 0 / 0 Balance 620 / 620 1240 / 1240 Weight 176 lb 5.917 oz 184 lb 4.903 oz Microbiology Reports for the Last 24 Hours: Microbiology 05/02/20 14:55 Urine,Clean Catch Urine Culture - Preliminary NO GROWTH AFTER 24 HOURS Assessment and Plan (1) Chest pain Status: Acute Category: Medical Code(s): R07.9 - Chest pain, unspecified (2) Suicidal thoughts Status: Acute Category: Medical Code(s): R45.851 - Suicidal ideations (3) Mental and behavioral disorders d/t use of alcohol, acute intoxication Status: Acute Category: Medical Code(s): F10.929 - Alcohol use, unspecified with intoxication, unspecified; F10.988 - Alcohol use, unspecified with oth
--- NOTE | 2020-05-04 12:46 | PC.NURSE ---
Contacted pt's mother about discharge. Agreeable to come get pt.
--- NOTE | 2020-05-05 08:26 | HMH.DCSUM ---
General - General Admission date:: 05/02/20 <Sonny Quiroz - 05/09/20 14:51> 05/02/20 <Tracy Nj - 05/05/20 08:30> Discharge date: 05/04/20 <Tracy Nj - 05/05/20 08:30> HPI HPI: Mr. Raymundo is a 40-year-old male patient with no family physician who presented to [facility] emergency room via EMS after being picked up off the street in [facility] by the police. Some of the history is obtained from him, records, and hospital staff who are familiar with him in the [facility]. Patient apparently has a history of schizophrenia and has been a patient at [facility]. He has a history of pectus deformity with a failed surgery in childhood. He also has a history of cholelithiasis for which he has been seen in the emergency room and admitted to [facility]. He had a cholecystectomy scheduled which he did not show up for. He denies usage of drugs and alcohol although he is a well-known user. He then later admits to using everything that he can get his hands on. He has been in drug/ alcohol rehab programs before. In the emergency room he was complaining of chest pain and wanted pain medicine. He also admitted he wanted to kill himself. He was thus admitted for observation and has been a one-on-one since admission. This a.m. patient initially states he takes no pills, no drugs and does not drink alcohol. He then admits to Dr. Quiroz that he takes whenever he can get his hands on. He states he does not have chest pain at present and is breathing okay.He also states that he does not want to kill himself. On admission CBC is normal. Blood chemistries show normal electrolytes with a BUN of 21 and a creatinine of 1.1. Troponin I has been normal x4. Urine does show 2+ bacteria and culture is pending. Toxicology studies show positive for amphetamines. EKG revealed sinus rhythm with RSR or QR pattern in V1 suggesting right ventricular conduction delay, left anterior fascicular block with LAD. Patient has been eating well since here and requested a second breakfast tray. He continues to deny chest pain, shortness of breath, and abdominal pain. He does request pain medicine for pain in his back. He states he has joint pains and then names all of his joints. <Tracy Nj - 05/05/20 08:30> Hospital Course Hospital Course: The patient was admitted and was placed on one on one protocol. He stated on 03/02/2021 that he did not wish to hurt himself and a mental health evaluation was ordered by Francisca Ledesma. She recommended to continue CIWA checks to monitor for withdrawal and that the patient should be transferred to an inpatient detox center such as [facility] or [facility]. The patient was initially agreeable to go to rehab. He continued to complain of some neck and back pain, which he stated was chronic. He continued eating well. Care management tried to get him placed at [facility], however he was rejected. The patient then decided he did not want to go to rehab and was therefore discharged home. <Tracy Nj - 05/05/20 08:33> Objective Vital signs: Temp Pulse Resp BP Pulse Ox 98.4 F 90 18 133/74 98 05/04/20 08:00 05/04/20 08:00 05/04/20 08:00 05/04/20 08:00 05/04/20 08:00 <Sonny Quiroz - 05/09/20 14:51> Temp Pulse Resp BP Pulse Ox 98.4 F 90 18 133/74 98 05/04/20 08:00 05/04/20 08:00 05/04/20 08:00 05/04/20 08:00 05/04/20 08:00 <Tracy Nj - 05/05/20 08:30> Narrative: - Constitutional no acute distress - *Routine Respiratory Exam Present: CTA bilaterally - *Routine Cardiovascular Exam Present: RRR - *Routine Abdominal Exam Present: soft, normoactive bowel sounds. Absent: tenderness - *Routine Extremities Exam Absent: cyanosis, clubbing, edema - *Routine Skin Exam Present: warm. Absent: rash - *Routine Neurological Exam Present: alert, oriented X3 <Tracy Nj - 05/05/20
[2020-05-09 23:10] LABS: Amphetamine Positive (.); Amphetamines Positive (.); Methamphetamine Positive (.)
[2020-05-10 17:53] LABS: Amphetamine (GC/MS) >3000 ng/mL (Cutoff=500); Methamphetamine (GC/MS) >3000 ng/mL (Cutoff=500)
== END 2020-05-04 14:29 | disposition home or self-care (01) ==
LOC: ER 16:02 → 2ND 16:37
PROVIDERS: Admitting Provider Family Medicine; Emergency Provider Family Medicine; Visit Provider Family Medicine
DX: R45.851 Suicidal ideations (principal); F15.10 Other stimulant abuse, uncomplicated; F10.929 Alcohol use, unspecified with intoxication, unspecified; F10.988 Alcohol use, unspecified with other alcohol-induced disorder; J44.9 Chronic obstructive pulmonary disease, unspecified; Z72.0 Tobacco use; K80.20 Calculus of gallbladder without cholecystitis without obstruction
CPT/HCPCS: 36415; 80048; 80305; 80324; 81001; 84484; 85025; 87086; 87581; 87633; 87798; 93005; 99284; G0378

== ENCOUNTER 2022-02-05 16:13 | Emergency (ER) | payer MEDICAID, SELFPAY ==
[2022-02-05 17:20] VITALS: BP 162/82; PULSE 97; RESP 16; O2SAT 98; BMI 28.2
--- NOTE | 2022-02-05 18:07 | XR_ITS ---
PROCEDURE INFORMATION: Exam: XR Chest Exam date and time: 02/05/2022 6:03 PM Age: 42 years old Clinical indication: Cough; Prior surgery; Surgery date: 6+ months; Surgery type: Surgery for pectus excavatum which he stated was unsuccessful. TECHNIQUE: Imaging protocol: Radiologic exam of the chest. Views: 2 views. COMPARISON: CR XR CHEST 2V 12/07/2018 1:09 PM FINDINGS: Lungs: Unremarkable. No consolidation. Pleural spaces: Unremarkable. No pleural effusion. No pneumothorax. Heart/Mediastinum: Unremarkable. No cardiomegaly. Bones/joints: Pectus deformity. Soft tissues: Upper abdominal surgical clips. IMPRESSION: No acute findings.
[2022-02-05 18:18] VITALS: BP 151/88; PULSE 98; RESP 16; TEMP 36.8; O2SAT 99; BMI 28.5
--- NOTE | 2022-02-05 18:22 | EXP.UTC ---
Discharge Plan Disposition Patient Disposition: Home, Self-Care Condition: Good Prescriptions Prescriptions: New azithromycin [Zithromax] 250 mg tablet 250 mg PO UD DOSE PK Qty: 6 0RF Rx Instructions: Take two (2) tablets today, then one (1) tablet days #2 thru #5 benzonatate [benzonatate] 100 mg capsule 100 mg PO TIDP PRN (Reason: Cough) Qty: 30 0RF methylprednisolone 4 mg Tablets,Dose Pack 4 mg PO DIRECTED Qty: 21 0RF promethazine-DM 6.25-15 mg/5 mL Syrup 5 ml PO Q6H PRN (Reason: Cough) Qty: 240 0RF Referrals Follow up/Referrals: Provider,Referral, MD [Referring] - See instructions Activity Restrictions/Add. Instructions Additional Instructions/Restrictions: Drink plenty of fluids. Take tylenol or ibuprofen for pain or fever. Take the medications as directed. Follow up with your regular doctor. GO TO THE ER FOR ANY WORSENING SYMPTOMS The cough medication (promethazine dm) will make you drowsy, so don't drive or operate heavy machinery after taking it. Clinical Impressions Clinical Impression: Acute bronchitis Stand Alone Forms Stand Alone Forms: Work/School Release Instructions Patient Instructions: DI for Acute Bronchitis, DI for Viral Syndrome Discharge ED Provider: Gurinder Aldridge [facility] General Stated complaint: cough, chest congestion, runny nose Mode of Arrival: Ambulatory Source of Information: Patient Limitations: No Limitations Time Seen by Provider: 02/05/22 18:22 HEENT Symptoms (Recalled from RN notes): Yes Resp Symptoms (Recalled from RN notes): Yes Skin Symptoms (Recalled from RN notes): No MS Symptoms (Recalled from RN notes): No Functional Status (Recalled from RN notes): n/a History of Present Illness Provider Complaint: He comes in today with c/o deep cough, runny nose that began this am. Related Data Previous Rx's Medication Instructions Recorded azithromycin 250 mg tablet 250 mg PO UD DOSE PK #6 tabs 02/05/22 (Zithromax) benzonatate 100 mg capsule 100 mg PO TIDP PRN Cough #30 caps 02/05/22 methylprednisolone 4 mg tablets in 4 mg PO DIRECTED #21 tabs 02/05/22 a dose pack promethazine-DM 6.25 mg-15 mg/5 mL 5 ml PO Q6H PRN Cough #240 mL 02/05/22 oral syrup Allergies Allergy/AdvReac Type Severity Reaction Status Date / Time No Known Allergies Allergy Verified 02/05/22 18:20 Worker's Comp Is this a Worker's Comp case?: No PFSH PFSH Social History Smoking Status: Current every day smoker tobacco type: cigarettes packs per day: 1 second hand exposure: No alcohol intake: current substance use type: methamphetamine current occupational status: unemployed Travel in the last 8 weeks: None household members: family housing: house current occupational exposures/hazards: No caffeine: Yes ROS Obtained: Yes All systems reviewed & no additional complaints except as documented Constitutional Constitutional: Reports chills and Reports fever(s) Eyes Eyes: Denies eye discharge ENT Ears, Nose, Mouth, and Throat: Reports as per HPI Cardiovascular Cardiovascular: Denies chest pain Respiratory Respiratory: Denies chest congestion and Reports cough Gastrointestinal Gastrointestingal: Reports nausea; Denies abdominal pain, constipation, cramping, diarrhea or vomiting Musculoskeletal Musculoskeletal: Denies arthralgias Integumentary/Breasts Skin/Breast: Denies rash Neurologic Neurologic: Denies paresthesias Physical Exam General General appearance: alert and in no apparent distress Head Head exam: atraumatic, normocephalic and normal inspection Eye Eye exam: Present normal appearance, PERRL and EOMI ENT ENT exam: Present mucous membranes moist and normal external ear exam Expanded ENT Exam TM/Canal exam: Bilateral TM: erythema and bulging Nose exam: Absent sinus tenderness Mouth exam: Present normal external inspection; Absent drooling Teet
[2022-02-05 18:38] VITALS: BP 151/88; PULSE 98; RESP 16; TEMP 36.8
[2022-02-05 19:00] LABS: Adenovirus,PCR Not Detected (NotDetected); Bordetella Pertussis Not Detected (NotDetected); Chlamydophila Pneumoniae, PCR Not Detected (NotDetected); Coronavirus 19, PCR Not Detected (NotDetected); Coronavirus 229E Not Detected (NotDetected); Coronavirus NL63 Not Detected (NotDetected); Coronavirus OC43 Not Detected (NotDetected); Coronovirus HKU1,PCR Not Detected (NotDetected); Human Metapneumovirus Not Detected (NotDetected); Influenza A, PCR Not Detected (NotDetected); Influenza AH1, 2009 Not Detected (NotDetected); Influenza AH1, PCR Not Detected (NotDetected); Influenza AH3,PCR Not Detected (NotDetected); Influenza B, PCR Not Detected (NotDetected); Mycoplasma Pneumoniae, PCR Not Detected (NotDetected); Parainfluenza 1, PCR Not Detected (NotDetected); Parainfluenza 2, PCR Not Detected (NotDetected); Parainfluenza 3, PCR Not Detected (NotDetected); Parainfluenza 4, PCR Not Detected (NotDetected); Respiratory Syncytial Virus Not Detected (NotDetected)
[2022-02-06 07:32] LABS: Rhinovirus/Enterovirus Detected (NotDetected)
== END 2022-02-05 18:50 | disposition home or self-care (01) ==
PROVIDERS: Emergency Provider Nurse Practitioner Family; PCP Student in an Organized Health Care Education/Training Program
DX: J20.6 Acute bronchitis due to rhinovirus (principal)
CPT/HCPCS: 71046; 87581; 87632; 87798; 99212; C9803; G0463; U0003; U0005